=== PATIENT | female | born 1955 | race Caucasian/White ===

== ENCOUNTER 2016-07-03 09:01 | Day surgery (SDC) | payer MEDICAID ==
[~2016-07-03] VITALS: Ht 167.6 cm; Wt 77.3 kg
[~2016-07-03 09:01] MED LIST: AMBIEN10 MG PO; AMITIZA24 MCG PO; ASPIRIN325 MG PO; BUPROPION HCL150 M1 PO; CILOSTAZOL100 MG PO; FERROUS SULFAT325 MG PO; FOLIC ACID1 MG PO; LIPITOR80 MG PO; METHOTREXATE2.5 MG PO; MULTIPLE VITAMI1 TA1 PO; NAPROSYN500 MG PO; NEURONTIN600 MG PO; NORVASC5 MG PO; OXYBUTYNIN CHLOR5 MG PO; PAXIL20 MG PO; PLAVIX75 MG PO; PLETAL50 MG PO; PRINIVIL20 MG PO; PROTONIX40 MG PO; VITAMIN D2000 UNIT; VOLTAREN75 MG PO; ZANAFLEX4 MG PO
[2016-07-03 09:55] LABS: BASOPHILS 0.2 % (0.0-2.0); EOSINOPHILS 3.7 % (0-7); HEMATOCRIT 34.5 % (36.0-48.0); HEMOGLOBIN 11.4 g/dL (12-16); IMMATURE GRANULOCYTES 0.2 % (0-5); LYMPHOCYTES 21.7 % (15-50); MCV 90.8 fL (80.0-100.0); MEAN PLATELET VOLUME 10.1 fL (7.4-10.4); MONOCYTES 16.2 % (2-11); PLATELET COUNT 145 10x3/uL (130-400); RDW 13.6 % (11.5-14.5); WBC 4.3 10x3/uL (4.8-10.8)
[2016-07-03 10:15] LABS: ANION GAP 11.5 mmol/L (8-16); CARBON DIOXIDE 28.1 mmol/L (21.0-32.0); CREATININE - SERUM 0.9 mg/dL (0.6-1.3); POTASSIUM - SERUM 3.6 mmol/L (3.5-5.1)
[2016-07-03 10:42] VITALS: Ht 167.6 cm; Wt 77.3 kg
--- NOTE | 2016-07-03 12:30 | NUR ---
1220 TO ROOM SOME DROWSY RESP EVEN AND NONLABORED HOB ELEVATED. TRAY ORDERED AND C/L IN REACH.
--- NOTE | 2016-07-03 15:39 | NUR ---
1320 TOLERATED DIET UP AND VOIDED. DR. ZUNIGA SAW PATIENT AND SPOUSE. IV DCD CATHETER INTACT. 1330 DISCHARGE INSTRUCTIONS GIVEN AND VERBALLY UNDERSTANDS.1335 TO HOME VIA W/C WITH SPOUSE.
--- NOTE | 2016-07-17 13:33 | OP ---
PATIENT NAME: GILBERTO RIVERA MEDICAL RECORD: [id number] :59 LOCATION:D.OPS ADMISSION DATE: SURGEON: NICKI ZUNIGA MD DATE OF OPERATION: 07/03/2016 PREOPERATIVE DIAGNOSES: 1. History of Helicobacter pylori. 2. Gastroesophageal reflux disease. 3. Hiatal hernia. POSTOPERATIVE DIAGNOSES: 1. History of Helicobacter pylori. 2. Gastroesophageal reflux disease. 3. Hiatal hernia. PROCEDURE: EGD with biopsy. SURGEON: Nicki Zuniga MD REPORT OF PROCEDURE: An Olympus endoscope was advanced through the mouth and esophagus. We passed through the hiatal hernia into the body of the stomach and out into the duodenum. There was no sign of any inflammatory changes in the first portion of the duodenum and as we backed up, we saw no signs of any ulcerations or lesions. The body of the stomach and antrum showed no sign of any inflammatory gastritis. A random biopsy was performed of the antrum to check for H. pylori. A retroflexed view showed the patient's hiatal hernia was unchanged. At this point, we removed the insufflation and pulled the scope back, I did not see any masses or lesions as we did a pull back through the esophagus. COMPLICATIONS: None. CONDITION: Stable. ANESTHESIA: TIVA. BLOOD LOSS: Minimal. TRANSINT:[id number] Voice Confirmation ID: [id number] DOCUMENT ID: [id number] NICKI ZUNIGA MD at 1333 CC: [id number] DICTATION DATE: 07/03/16 1211 POLISHER HAND: 07/03/[address] [facility] 07/03/16 [place] [address]
[2016-07-20] MEDS ORDERED: BUPROPION XL150 MG PO (14:23)
[2016-07-20] MEDS ORDERED: PAXIL40 MG PO (14:23)
[2016-07-20] MEDS ORDERED: FOLIC ACID1 MG PO (14:24)
[2016-07-20] MEDS ORDERED: NAPROSYN500 MG PO (14:26)
[2016-07-20] MEDS ORDERED: STOOL SOFTENER100 M1 PO (14:26)
== END 2016-07-03 13:35 | disposition home or self-care (01) ==
LOC: D.OPS 09:01
PROVIDERS: Anesthesiology
DX: K21.9 Gastro-esophageal reflux disease without esophagitis (principal); K44.9 Diaphragmatic hernia without obstruction or gangrene; Z86.19 Personal history of other infectious and parasitic diseases

== ENCOUNTER → 2016-07-13 19:44 | Outpatient (CLI) | payer MEDICAID ==
[2016-07-03 10:42] VITALS: BMI 27.5
[~2016-07-13 19:44] MED LIST changes: +BUPROPION XL150 MG PO; +Demerol PO; +PAXIL40 MG PO; +STOOL SOFTENER100 M1 PO
== END | disposition home or self-care (01) ==
LOC: D.MAMMO 16:00
DX: Z12.31 Encounter for screening mammogram for malignant neoplasm of breast (principal)

== ENCOUNTER 2016-07-21 05:11 | Day surgery (SDC) | payer MEDICAID ==
[~2016-07-21] VITALS: Ht 167.6 cm; Wt 87.3 kg
[2016-07-21] VITALS (10 sets, daily range): BP systolic 106–153; BP diastolic 53–83; Ht 167.6 cm; Wt 87.3 kg
[~2016-07-21 05:11] MED LIST changes: -Demerol PO
--- NOTE | 2016-07-21 08:42 | NUR ---
PATIENT POSITIONED LITHOTOMY ON GEL PAD, FOAM PADS USED UNDER BUTTOCKS WITH SAFETY STRAP, ALL AREAS PADDED AND SECURED WITH NO IMPINGEMENT, PATIENT HAS RED AREA ON RIGHT ARM THAT SHE STATED WAS A BIRTHMARK, WHEN MOVING OVER TO OR BED, GOKUL.
--- NOTE | 2016-07-21 10:45 | NUR ---
RECEIVED TO FLOOR AT THIS TIME FROM PACU VIA STRETCHER. PT TRANSFERRED TO BED WITH MINIMAL ASSISTANCE FROM NURSING STAFF. VITAL SIGNS STABLE AND OXYGEN WEANED TO 2L VIA NC. AT BEDSIDE AND BED IN LOWEST POSITION WITH WHEELS LOCKED. SCD'S ON AND IN WORKING ORDER. BED ALARM ON. IV TO RIGHT HAND PATENT WITH BRISK BLOOD RETURN PRESENT. ASSESSMENT AND HISTORY OBTAINED PER FLOWSHEET. CALL LIGHT IN REACH, WILL CONTINUE WITH PLAN OF CARE.
[2016-07-21 11:25] LABS: HEMATOCRIT 36.6 % (36.0-48.0); HEMOGLOBIN 11.9 g/dL (12-16); MCH 29.8 pg (26.0-34.0); MCHC 32.5 g/dL (31.0-37.0); MCV 91.5 fL (80.0-100.0); MEAN PLATELET VOLUME 10.7 fL (7.4-10.4); RDW 13.8 % (11.5-14.5); WBC 9.9 10x3/uL (4.8-10.8)
--- NOTE | 2016-07-21 12:30 | NUR ---
VOIDED 200ML OF PALE, YELLOW URINE AT THIS TIME WITHOUT DIFFICULTY. ASSISTED PT BACK TO BED AND REMAINS AT BEDSIDE. CALL LIGHT IN REACH, WILL CONTINUE WITH PLAN OF CARE.
--- NOTE | 2016-07-21 14:00 | NUR ---
SLEEPING AT THIS TIME. RESPIRATIONS EVEN AND NON LABORED. WEANED OFF OF OXYGEN AT THIS TIME. CALL LIGHT IN REACH, AT BEDSIDE. WILL CONTINUE WITH PLAN OF CARE.
--- NOTE | 2016-07-21 16:50 | NUR ---
SCHEDULED MEDICATIONS ADMINISTERED AT THIS TIME. NARROW FABRICS WEAVER INITIATED AT THIS TIME. PAIN 11/30. PT AMBULATING INDEPENDENTLY TO THE RESTROOM. CALL LIGHT IN REACH, WILL CONTINUE WITH PLAN OF CARE. FAMILY AT BEDSIDE. PRN ZOFRAN ADMINISTERED AT THIS TIME FOR NAUSEA. WILL CONTINUE WITH PLAN OF CARE.
--- NOTE | 2016-07-21 18:40 | NUR ---
PULVERIZER MILL OPERATOR IN USE FOR PAIN AT THIS TIME. FAMILY REMAINS AT BEDSIDE. CALL LIGHT IN REACH, WILL CONTINTUE WITH PLAN OF CARE.
--- NOTE | 2016-07-21 19:00 | NUR ---
ASSESSMENT PERFORMED AT THIS TIME. SISTER REMAINS AT BEDSIDE. CALL LIGHT IN REACH. CNC MACHINE OPERATOR IN USE FOR PAIN CONTROL. WILL CONTINUE WITH PLAN OF CARE.
[2016-07-22] VITALS: BP 137/74
[2016-07-22 04:00] VITALS: BP 134/68
[2016-07-22 05:56] LABS: BASOPHILS 0.1 % (0.0-2.0); EOSINOPHILS 0.4 % (0-7); HEMATOCRIT 30.8 % (36.0-48.0); HEMOGLOBIN 9.9 g/dL (12-16); IMMATURE GRANULOCYTES 0.3 % (0-5); LYMPHOCYTES 17.1 % (15-50); MCH 29.6 pg (26.0-34.0); MCHC 32.1 g/dL (31.0-37.0); MCV 92.2 fL (80.0-100.0); MEAN PLATELET VOLUME 10.6 fL (7.4-10.4); MONOCYTES 12.7 % (2-11); NEUTROPHILS 69.4 % (40-80); PLATELET COUNT 161 10x3/uL (130-400); RBC 3.34 10x6/uL (4.00-5.40); RDW 13.9 % (11.5-14.5)
[2016-07-22 06:14] LABS: ANION GAP 11.8 mmol/L (8-16); CALCIUM 8.5 mg/dL (8.5-10.1); CARBON DIOXIDE 27.8 mmol/L (21.0-32.0); CREATININE - SERUM 0.9 mg/dL (0.6-1.3); POTASSIUM - SERUM 3.6 mmol/L (3.5-5.1)
[2016-07-22 06:25] LABS: WBC 6.7 10x3/uL (4.8-10.8)
--- NOTE | 2016-07-22 07:15 | NUR ---
REPORT RECEIVED FROM RAT EXTERMINATOR NURSE. CALL LIGHT IN REACH.
[2016-07-22 08:30] VITALS: BP 117/63
--- NOTE | 2016-07-22 08:30 | NUR ---
TO XRAY AND BACK TO ROOM.
--- NOTE | 2016-07-22 10:28 | NUR ---
QUIET IN ROOM AT PRESENT WAITING ON MD TO TALK TO HIM LAP SITES IN TACT AT PRESENT CLEAN DRY IN TACT.
--- NOTE | 2016-07-22 10:41 | NUR ---
ASSESSMENT COMPLETED. AM MEDS ADMINISTERED. REFUSES SCDs. IN ROOM. CALL LIGHT IN REACH. WILL CONTINUE WITH PLAN OF CARE.
[2016-07-22 12:18] VITALS: BP 132/63
--- NOTE | 2016-07-22 12:20 | NUR ---
IV SL'D PER MD ORDER. DISCHARGE NURSE TO DO PAPERWORK.
[2016-07-22] MEDS ORDERED: Demerol PO (12:59)
--- NOTE | 2016-07-22 14:59 | NUR ---
IV DC'D WITH TIP INTACT.
--- NOTE | 2016-07-22 16:10 | NUR ---
DC ORDERS DISCUSSED WITH PATIENT AND . BOTH VERBALIZED UNDERSTANDING. RX FOR DEMEROL HANDED TO . DC'D TO VEHICLE VIA WC WITH .
[2016-07-22 16:43] VITALS: BP 108/53
--- NOTE | 2016-07-23 13:01 | OP ---
PATIENT NAME: GILBERTO RIVERA MEDICAL RECORD: [id number] :59 LOCATION:D.OPS ADMISSION DATE: SURGEON: ROMÁN ZUNIGA MD DATE OF OPERATION: 07/21/2016 PREOPERATIVE DIAGNOSES: 1. Hiatal hernia. 2. Gastroesophageal reflux disease. 3. Fibromyalgia. 4. Congestive heart failure, unspecified. 5. Arthritis. 6. Hypercholesterolemia. POSTOPERATIVE DIAGNOSES: 1. Hiatal hernia. 2. Gastroesophageal reflux disease. 3. Fibromyalgia. 4. Congestive heart failure, unspecified. 5. Arthritis. 6. Hypercholesterolemia. PROCEDURE: Laparoscopic hiatal hernia repair with Pastor fundoplication. SURGEON: Román Zuniga MD REPORT OF PROCEDURE: The patient's abdomen was prepped and draped in sterile fashion. A Veress needle was inserted in the left upper quadrant and abdomen was insufflated. A 11-mm Visiport trocar was inserted in the midline just above the umbilicus. We could see the Veress needle and saw there was no sign of any injury to bowel or surrounding structures. At this point, a 12-mm trocar was placed in the left subcostal region. A 5-mm trocar was placed in the epigastrium, a 5-mm trocar was placed in the left lateral abdomen and a 5-mm trocar was placed in the left lateral subcostal region. The patient had about 50% of the stomach up in the chest for hiatal hernia. When we pulled this down, it would pull down easily, but would go right back up into the thoracic cavity whenever we let loose. We took down the lesser omentum using Harmonic scalpel all the way up to the right side of the right giselle. We dissected out the right side of the right giselle and eventually got underneath the peritoneum and the hernia sac and pulled this hernia sac down out of the thoracic cavity. We continued this dissection as far anteriorly and posteriorly as possible. Once we got as far as we could, then we went to the greater curvature of the stomach and took down the short gastrics using the Harmonic scalpel. We continued this dissection to the left side of the right giselle. The left side of the right giselle was then dissected free and again, we got underneath the hernia sac and was able to eventually eviscerate the entire hernia sac out of the thoracic cavity. At this point, the stomach easily with rest in the abdominal cavity without any tension. The esophageal hiatus was then reapproximated with interrupted 0 Polydeks times 4 with good approximation of the tissue and resolution of the hiatal hernia. We then cleared off the hernia sac from the fundus and distal esophagus. We then performed a 360-degree posterior wrap. The fundus of the stomach was pulled posterior to the distal esophagus and was affixed into place using interrupted 0 Polydeks times 3. The top and the bottom suture incorporated a bite of the esophagus, everything appeared resting in good position at this point. We then irrigated out the abdomen and any signs of any bleeding were treated with Harmonic scalpel. We saw no sign of any surgical OPERATIVE REPORT [id number] GILBERTO RIVERA bleeding at this point. At this point, the liver retractor which had been holding up the left lobe of the liver was removed. The 11 and 12-mm trocar site fascia was closed with interrupted 0 Vicryls using a Ehsan-Leonardo suture passer device. At this point, the ports and insufflation were then removed and any bleeding from the wounds were treated with electrocautery. We then instilled 10 mL of 0.25% Marcaine with epinephrine into the wound and closed the skin incisions with subcutaneous 5-0 Monocryl. COMPLICATIONS: None. CONDITION: Stable. ANESTHESIA: General endotracheal and local. BLOOD LOSS: 30 mL. TRANSINT:[id number] Voice Confirmation ID: [id number] DOCUMENT ID: [id number] ROMÁN ZUNIGA MD at 1301 CC: FRANYK MANDUJANO MD [id number] DICTATION DATE: 07/21/16 1002 TESTING TECH: 07/21/16 1820 [facility] 07/22/16 [facility] [address] [place] [address]
== END 2016-07-22 16:10 | disposition home or self-care (01) ==
LOC: D.OPS 05:11 → D.MS 05:11 → D.PAN 07:30 → D.OPS 07:30 → D.MS 10:22 → D.OPS 07-22 16:10
PROVIDERS: Anesthesiology; Surgery
DX: K44.9 Diaphragmatic hernia without obstruction or gangrene (principal); K21.9 Gastro-esophageal reflux disease without esophagitis; M79.7 Fibromyalgia; I50.9 Heart failure, unspecified; M19.90 Unspecified osteoarthritis, unspecified site; E78.00 Pure hypercholesterolemia, unspecified

== ENCOUNTER → 2016-08-19 16:49 | Outpatient (CLI) | payer MEDICAID ==
[2016-07-21 11:05] VITALS: BMI 31.0
[~2016-08-19 16:49] MED LIST changes: +Demerol PO
== END | disposition home or self-care (01) ==
LOC: D.MAMMO 10:30
DX: R92.8 Other abnormal and inconclusive findings on diagnostic imaging of breast (principal)

== ENCOUNTER → 2016-12-30 12:56 | Outpatient (CLI) | payer MEDICAID ==
[2016-07-21 11:05] VITALS: BMI 31.0
== END | disposition home or self-care (01) ==
LOC: D.MRI 12:56
DX: M54.12 Radiculopathy, cervical region (principal)

== ENCOUNTER → 2017-05-12 17:14 | Outpatient (CLI) | payer MEDICAID ==
[2016-07-21 11:05] VITALS: BMI 31.0
== END | disposition home or self-care (01) ==
LOC: D.MAMMO 11:00
DX: R92.8 Other abnormal and inconclusive findings on diagnostic imaging of breast (principal)

== ENCOUNTER → 2017-08-20 22:05 | Outpatient (CLI) | payer MEDICAID ==
[2016-07-21 11:05] VITALS: BMI 31.0
== END | disposition home or self-care (01) ==
LOC: D.MAMMO 16:00
DX: Z12.31 Encounter for screening mammogram for malignant neoplasm of breast (principal)

== ENCOUNTER → 2017-10-21 16:58 | Outpatient (CLI) | payer MEDICAID ==
[2016-07-21 11:05] VITALS: BMI 31.0
== END | disposition home or self-care (01) ==
LOC: D.MAMMO 09-28 11:30
DX: R92.8 Other abnormal and inconclusive findings on diagnostic imaging of breast (principal)